=== PATIENT | male | born 2000 | race Caucasian/White ===

== ENCOUNTER 2018-09-12 18:47 | Emergency (ER) | payer SELFPAY ==
--- NOTE | 2018-09-12 19:28 | EDM.PDOC ---
<Paul Cardoso - Last Filed: 09/12/18 19:57> ED HPI GENERAL MEDICAL PROBLEM - General Chief Complaint: Lower Extremity Injury/Pain Stated Complaint: INJURED RT ANKLE Time Seen by Provider: 09/12/18 20:02 - History of Present Illness INITIAL COMMENTS - FREE TEXT/NARRATIVE: HISTORY AND PHYSICAL: History of present illness: Blaine is a 18 year old male who presents to the emergency department for the evaluation of right ankle pain. At approximately 2pm the patient jumped off the side of a flat bed and rolled his right ankle on a pipe. He denies hitting his head or any other trauma. He has been weight bearing on the the affected extremity. Review of systems: As per history of present illness and below otherwise all systems reviewed and negative. Past medical history: As per history of present illness and as reviewed below otherwise noncontributory. Surgical history: As per history of present illness and as reviewed below otherwise noncontributory. Social history: No reported history of drug or alcohol abuse. Family history: As per history of present illness and as reviewed below otherwise noncontributory. Physical exam: Constitutional: Well developed well nourished in no apparent distress HEENT: Atraumatic, normocephalic, pupils reactive, negative for conjunctival pallor or scleral icterus, mucous membranes moist, throat clear, neck supple, nontender, trachea midline. Lungs: Clear to auscultation, breath sounds equal bilaterally, chest nontender. Heart: S1S2, regular, negative for clicks, rubs, or JVD. Abdomen: Soft, nondistended, nontender. Bowel sounds active Pelvis: Stable nontender. Genitourinary: Deferred. Rectal: Deferred. Extremities: Soft tissue swelling to the lateral malleolus. No significant ecchymosis. Distal pulse +2 Cap refill < 3 seconds. ROM in knee & hip intact. Neuro: Awake, alert, oriented. Cranial nerves II through XII unremarkable. Cerebellum unremarkable. Motor and sensory unremarkable throughout. Exam nonfocal. Diagnostics: Xray 3 view right ankle Therapeutics: None Impression: R ankle pain Plan: Radiographic imagining demonstrating no fracture. The patient will be fitted for a cam boot, provided a referral for orthopedics and given an excusal for work for tomorrow. Definitive disposition and diagnosis as appropriate pending reevaluation and review of above. Right Ankle Pain Score (Numeric/FACES): 5 - Related Data Allergies Allergy/AdvReac Type Severity Reaction Status Date / Time No Known Allergies Allergy Verified 09/12/18 18:54 Home Meds: Home Meds . [No Known Home Meds] 09/12/18 [History] Past Medical History - Past Health History Medical/Surgical History: Denies Medical/Surgical History - Past Surgical History HEENT Surgical History: Reports: Other (See Below) Other HEENT Surgeries/Procedures: facial sx Social & Family History - Family History Family Medical History: Noncontributory - Tobacco Use Smoking Status *Q: Current Every Day Smoker Years of Tobacco use: 3 Packs/Tins Daily: 1 - Recreational Drug Use Recreational Drug Use: No Course - Vital Signs Last Recorded V/S: Last Vital Signs Temp 97.2 F 09/12/18 18:55 Pulse 95 09/12/18 18:55 Resp 16 09/12/18 18:55 BP 132/73 09/12/18 18:55 Pulse Ox 96 09/12/18 18:55 Departure - Departure Disposition: Home, Self-Care 01 Clinical Impression: Ankle injury - Discharge Information Referrals: PCP,Not In Area [Primary Care Provider] - Forms: ED Department Discharge Additional Instructions: The following information is given to patients seen in the emergency department who are being discharged to home. This information is to outline your options for follow-up care. We provide all patients seen in our emergency department with a follow-up referral. The need for follow-up, as well as the timing and circumstances, are variable depending upon the specifics of your emergency department visit. If you don't have a primary care physician on staff, we will provide you with a referral. We always advise you to contact your personal physician following an emergency department visit to inform them of the circumstance of the visit and for follow-up with them and/or the need for any referrals to a consulting specialist. The emergency department will also refer you to a specialist when appropriate. This referral assures that you have the opportunity for follow-up care with a specialist. All of these measure are taken in an effort to provide you with optimal care, which includes your follow-up. Under all circumstances we always encourage you to contact your private physician who remains a resource for coordinating your care. When calling for follow-up care, please make the office aware that this follow-up is from your recent emergency room visit. If for any reason you are refused follow-up, please contact the [facility] at and asked to speak to the emergency department charge nurse. [facility] [address] [place] [address] [address] [facility] Professional Building [address] [facility], [address] [place] [address] Dr Etienne, Orthopedist [facility] [address] [place] [address] Dr Kaur - Dr Conti - Dr [facility] [address] [place] [address] [facility] [address] [place] [address] 1. Ice, elevate, and motrin or tylenol as needed 2. Follow up with orthopedics, please call the number provided to schedule an appointment 3. Return to ED as needed as discussed <Jitendra Collazo - Last Filed: 09/12/18 20:02> Review of Systems - Review of Systems Review Of Systems: ROS reveals no pertinent complaints other than HPI. ED EXAM, GENERAL - Physical Exam Exam: See Below (see dictation) Departure - Departure Time of Disposition: 20:01 Condition: Good
--- NOTE | 2018-09-12 19:50 | CR ---
Indication: Injury. Pain Technique: Three views of the right ankle Comparison: None available Findings: Bones: Alignment is normal. No fractures or bone lesions. Joint spaces: Unremarkable. Soft tissues: Lateral soft tissue swelling. Impression: No acute fracture or dislocation. Dictated by Jose David Olivarez MD @ 09/12/2018 7:47:21 PM Dictated by: Jose David Olivarez MD @ 09/12/2018 19:48:08 (Electronically Signed)
== END 2018-09-12 20:25 | disposition home or self-care (01) ==
LOC: MW.ED 18:47
DX: S99.911A Unspecified injury of right ankle, initial encounter (principal); F17.210 Nicotine dependence, cigarettes, uncomplicated; X50.1XXA Overexertion from prolonged static or awkward postures, initial encounter
CPT/HCPCS: 73610-26-RT; 73610-RT; 99283; 99283-25